=== PATIENT | female | born 1965 | race Caucasian/White ===

== ENCOUNTER 2018-03-08 08:58 | Day surgery (SDC) | payer SELFPAY ==
[2018-03-08] MEDS ORDERED: GENTAMICIN SO4 80 MG/2 ML VIAL ONE (09:47)
[2018-03-08] MEDS ORDERED: ceFAZolin SODIUM 1 GM VIAL ONE ×2 (09:47→10:49)
[2018-03-08] MEDS ORDERED: LIDOCAINE 1%/EPI 1:100000 (20 ML MULTI DOSE VIAL) ONE ×2 (09:47→10:56)
[2018-03-08] MEDS ORDERED: EPINEPHrine 1:1,000 1 MG/1 ML - 30ML VIAL (INJECTION) ONE (09:47)
[2018-03-08] MEDS ORDERED: LIDOCAINE HCL 1% PRESERVATIVE FREE - 30ML VIAL ONE ×2 (09:47→10:56)
[2018-03-08 09:51] VITALS: BMI 24.2
[2018-03-08] MEDS ORDERED: MIDAZOLAM HCL 2 MG/2 ML SINGLE DOSE VIAL ONE (10:30)
[2018-03-08] MEDS ORDERED: DEXAMETHASONE SOD PHOSPHATE 4 MG/1 ML VIAL ONE (10:49)
[2018-03-08] MEDS ORDERED: ONDANSETRON 4 MG/2 ML VIAL ONE ×2 (10:49→14:32)
[2018-03-08] MEDS ORDERED: ePHEDrine SULFATE 50 MG/1 ML AMPULE ONE (11:00)
--- NOTE | 2018-03-08 13:44 | OP ---
Operative Note - Note: Operative Date: 03/08/18 Pre-Operative Diagnosis: cosmetic deformity of breasts. Lipodystrophy of abdomen,back and flanks Operation: Bilateral Mastopexy ,explantation and exchange of textured silicone implants. Suction of abdomen,flanks and back Implants: Sientra 160 low profile bilateral Surgeon: Cisco Carmona Anesthesia: General Specimens Removed: implants Estimated Blood Loss (mls): 40
[2018-03-08] MEDS ORDERED: ONDANSETRON 4 MG/2 ML VIAL IVPUSH PRN (13:47)
[2018-03-08] MEDS ORDERED: oxyCODONE HCL 5 MG TABLET PO PRN ×2 (13:47)
[2018-03-08] MEDS ORDERED: PROMETHAZINE HCL 25 MG/1 ML VIAL IVPUSH PRN (13:47)
[2018-03-08] MEDS ORDERED: ONDANSETRON 4 MG/2 ML VIAL IVPUSH ONE (14:30)
[2018-03-08 16:04] VITALS: TEMP 97.8
[2018-03-08 16:53] VITALS: PULSE 70
[2018-03-08 16:54] VITALS: BP 122/74
--- NOTE | 2018-03-09 11:45 | OP ---
DATE OF OPERATION: 03/08/2018 SURGEON: Kevon Carmona MD PREOPERATIVE DIAGNOSES: 1. Cosmetic deformity of bilateral breasts, status post augmentation mastopexy. 2. Lipodystrophy of abdomen, flanks, and back. POSTOPERATIVE DIAGNOSES: 1. Cosmetic deformity of bilateral breasts, status post augmentation mastopexy. 2. Lipodystrophy of abdomen, flanks, and back. OPERATIVE PROCEDURES: 1. Bilateral implant exchange and capsulotomy. 2. Replacement of bilateral breast implants. 3. Bilateral Alexis-pattern mastopexy. 4. Suction-assisted lipectomy of abdomen, flanks, and back. OPERATIVE INDICATION: Patient is a 52-year-old female who has undergone multiple, previous cosmetic procedures, including breast augmentation and mastopexy, and now finds that her breast volume over last few years has increased in size with ptosis and the nipple-areolar complex in a downward position. The patient feels and discussed the overall size of her breasts to be large for her body size and desired reduction mastopexy and replacement of her implants. She also complained of lipodystrophy of the abdomen, flanks, and back, after previous abdominoplasty and multiple procedures, prior to this procedure. The risks and benefits, surgical versus nonsurgical alternatives, as well as material complications were discussed with the patient on multiple occasions preoperatively. She agreed to the planned procedure. The patient was marked in the standing position preoperatively today with the knowledge of the procedure, the markings, and the overall discussion of the procedure. She agreed to the procedure. All questions were asked and answered. OPERATIVE PROCEDURE IN DETAIL: Patient was taken to the operating room, and after induction of general anesthesia in supine position, both arms were extended and padded. Venodyne boots were placed and then the usual prepping and draping with ChloraPrep over the entire extent of the abdomen, flanks, back, and chest was carried out. At this point, after timeout and anesthesia induction, prepping and draping, attention was turned to the markings which were made on the breasts. The Alexis pattern which had been marked in the standing position was injected with 1% local lidocaine anesthesia with 1:100,000 epinephrine. The prior circumvertical mastopexy was seen. The nipple-areolar complexes which were asymmetric were marked with a number-42 nipple-areolar cutter and the abdominal wall, abdomen, flanks, and back were infiltrated with a dilute tumescent solution for liposuction. Approximately 1600 mL was infiltrated into this area and allowed to create anesthesia while the breasts were being done. At this point, a circumareolar incision was made around the number-42 nipple-areolar cutter on the right breast and then the skin-pattern reduction was de-epithelialized in the usual fashion. No breast volume was removed, but in the lower portion of the de-epithelialized area, an incision measuring 6 cm was made near the inframammary fold. Dissection was then carried down through the subcutaneous tissue to the underlying capsule of the breast implant and the implant was then removed. This was a Dwight 325-cc textured-silicone device. This was sent for pathologic diagnosis. The capsule was then examined and no lesions were seen within the capsule itself and no fluid was seen within the pocket. The pocket was then shrunken by using the capsulorrhaphy-coagulation technique, in multiple locations throughout the pocket, in order to accept a new, smaller implant. At this point, after copious irrigation with triple antibiotic solution, a Sientra smooth, round, low-profile, style 106, 160-cc implant was placed into the pocket. This showed good shape and contour and then was closed in a vertical fashion, closing the capsule and the subcutaneous tissue of the breast over the device to protect it and prevent bottoming-out. Multiple sutures of 2-0 Vicryl sutures were placed into the pillars of the breast and then an advancement flap was created. The Alexis-pattern reduction was then approximated down to the new position, the nipple-areolar complex brought up to the new position in a higher location, and then multiple sutures with 2-0 Vicryl were used to close the deep tissue of the mastopexy. A second layer of suture with 2-0 Vicryl was carried out and then a subcuticular suture using 2-0 V-Loc was carried out circumferentially and vertically on the limbs and along the inframammary fold. The exact, same procedure was carried out on the opposite, left breast, also closing with the exact, same materials, and good symmetry was seen in the sitting position. The patient was then placed down in the supine position. The patient was turned into a lateral position to use the Micro-Aire liposuction device and then a suction-assisted lipectomy was carried out over the entire lateral back, up to the bra and back area, down to the lateral flank area to the hip region, and over the entire abdomen. Approximately 1600 mL of fatty material was removed from all areas symmetrically. Good shape and contour was seen, including the pubic mons area which was suctioned at the patient's request. Good shape and contour was seen of both abdomen and breasts, at this point. Good viability of the nipple-areolar complex was visualized and then the patient was dressed sterilely with Dermabond, Steri-Strips, and a compressive dressing over both areas. She was awakened, extubated, and transferred to the recovery room in a Surgi-Bra and a binder. She tolerated procedure well. KEVON CARMONA M.D. /[id number]
--- NOTE | 2018-03-12 17:06 | PATH ---
Surgical Pathology Report Patient Name: MAURA CASPER Med. Rec. #: [id number] /Age/Gender: 1965 (Age: 52) / F Account: [id number] Location: [facility] AMBUL[facility]ORY Taken: 03/08/2018 Received: 03/08/2018 Reported: 03/12/2018 Physicians: Cisco Carmona Specimen(s) Received A: EXPLANTED RIGHT BREAST IMPLANT B: EXPLANTED LEFT BREAST IMPLANT Clinical History Cosmetic Final Diagnosis A. EXPLANTED RIGHT BREAST IMPLANT, REMOVAL: CONSISTENT WITH BREAST IMPLANT. GROSS EXAMINATION ONLY. B. EXPLANTED LEFT BREAST IMPLANT, REMOVAL: CONSISTENT WITH BREAST IMPLANT. GROSS EXAMINATION ONLY. Electronically Signed Flory Broussard M.D. Gross Description A. Received fresh labeled "explanted right breast implant," is a 12.5 cm in diameter x 3.0 cm in depth clear, rubbery, intact breast implant. No soft tissue is present. No sections are submitted, gross only. B. Received fresh labeled "explanted left breast implant," is a 12.5 cm in diameter x 3.0 cm in depth clear, rubbery, intact breast implant. No soft tissue is present. No sections are submitted, gross only. /03/11/2018 saudi03/11/2018
== END 2018-03-08 17:21 | disposition home or self-care (01) ==
LOC: FASU 08:58
PROVIDERS: ATTEND Plastic Surgery
PROC: 0HPU0JZ Removal of Synthetic Substitute from Left Breast, Open Approach (ICD-10-PCS; 2018-03-08)
PROC: 0HPT0JZ Removal of Synthetic Substitute from Right Breast, Open Approach (ICD-10-PCS; 2018-03-08)
PROC: 0HUU0JZ Supplement Left Breast with Synthetic Substitute, Open Approach (ICD-10-PCS; 2018-03-08)
PROC: 0HUT0JZ Supplement Right Breast with Synthetic Substitute, Open Approach (ICD-10-PCS; 2018-03-08)
PROC: 0J083ZZ Alteration of Abdomen Subcutaneous Tissue and Fascia, Percutaneous Approach (ICD-10-PCS; 2018-03-08)
PROC: 0J073ZZ Alteration of Back Subcutaneous Tissue and Fascia, Percutaneous Approach (ICD-10-PCS; 2018-03-08)
PROC: 0HNV0ZZ Release Bilateral Breast, Open Approach (ICD-10-PCS; principal; 2018-03-08 11:05)
PROC: 0HRV0JZ Replacement of Bilateral Breast with Synthetic Substitute, Open Approach (ICD-10-PCS; 2018-03-08 11:05)
DX: Z41.1 Encounter for cosmetic surgery (principal); E88.1 Lipodystrophy, not elsewhere classified
CPT/HCPCS: 84703; 88300-TC; 94760

== ENCOUNTER 2019-09-16 10:46 | Emergency (ER) | payer OTHER ==
[2019-09-16 10:51] VITALS: BMI 24.2
[2019-09-16] MEDS ORDERED: LACTATED RINGERS SOLUTION 1000 ML INFUS.BAG IV ONE (11:04)
[2019-09-16] MEDS ORDERED: ACETAMINOPHEN 1000 MG/100 ML VIAL (NON FORMULARY) IVPB ONE (11:17)
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
[2019-09-16] MEDS ORDERED: ACETAMINOPHEN INJECTION 100 ML IVPB ONE (11:35)
[2019-09-16 12:04] LABS: HEMATOCRIT 39.2 % (32.4-45.2); HEMOGLOBIN 13.1 GM/dL (10.7-15.3); MCH 30.2 pg (25.7-33.7); MCHC 33.3 g/dl (32.0-36.0); MEAN CELL VOLUME 90.6 fl (80-96); MEAN PLT VOLUME 8.3 fl (7.5-11.1); PLATELET COUNT 209 K/MM3 (134-434); RBC 4.33 M/mm3 (3.60-5.2); RDW 13.2 % (11.6-15.6); WHITE BLOOD COUNT 4.2 K/mm3 (4.0-10.0)
[2019-09-16 12:12] LABS: INR 0.88 (0.83-1.09); PROTHROMBIN TIME (PATIENT) 10.4 SEC (9.7-13.0)
[2019-09-16 12:37] LABS: BILIRUBIN,TOTAL 0.4 mg/dL (0.2-1); BLOOD UREA NITROGEN 16.1 mg/dL (7-18); CALCIUM 9.2 mg/dL (8.5-10.1); CREATININE 0.8 mg/dL (0.55-1.3); POTASSIUM 4.3 mmol/L (3.5-5.1); TOT PROT 7.2 g/dl (6.4-8.2)
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
[2019-09-16 15:43] VITALS: BP 150/100; PULSE 88; TEMP 98.4
--- NOTE | 2019-09-19 11:18 | EKG ---
Test Reason : Blood Pressure : / mmHG Vent. Rate : 087 BPM Atrial Rate : 087 BPM P-R Int : 140 ms QRS Dur : 086 ms QT Int : 348 ms P-R-T Axes : 029 -02 033 degrees QTc Int : 418 ms NORMAL SINUS RHYTHM NO PREVIOUS ECGS AVAILABLE Confirmed by ALESHIA OJEDA MD ([id number]) on 09/19/2019 11:18:01 AM Referred By: Confirmed By:ALESHIA OJEDA MD
== END 2019-09-16 15:44 | disposition home or self-care (01) ==
LOC: JER 10:46
PROC: 3E033GC Introduction of Other Therapeutic Substance into Peripheral Vein, Percutaneous Approach (ICD-10-PCS; principal; 2019-09-16)
DX: R55 Syncope and collapse (principal); T76.11XA Adult physical abuse, suspected, initial encounter; Y04.8XXA Assault by other bodily force, initial encounter
CPT/HCPCS: 36415; 70450-TC; 70486-TC; 71045-TC-FY; 72125-TC; 73090-TC-LT-FY; 73110-TC-LT-FY; 73130-TC-LT-FY; 73523-TC-FY; 80053; 85027; 85610; 86850; 86900; 86901; 93005; 93010; 96374; 99285-25; J0131

== ENCOUNTER 2019-09-16 17:41 | Emergency (ER) | payer OTHER ==
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
[2019-09-16 18:04] VITALS: BP 145/81; PULSE 82; TEMP 98.1; BMI 26.6
[2019-09-16] MEDS ORDERED: ACETAMINOPHEN 325 MG TABLET (FP) PO ONE (18:05)
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
== END 2019-09-16 19:07 | disposition home or self-care (01) ==
LOC: JER 17:41
DX: R51 Headache (principal)
CPT/HCPCS: 99283-25

== ENCOUNTER 2021-12-25 15:19 | Emergency (ER) | payer OTHER ==
[2021-12-25 15:43] VITALS: BP 120/80; PULSE 78; RESP 19; TEMP 98; BMI 29.0
[2021-12-25] MEDS ORDERED: BACITRACIN 15 GM TUBE TOPICAL OINTMENT ONE (16:17)
== END 2021-12-25 17:19 | disposition home or self-care (01) ==
LOC: JERFT 15:19 → JER 15:19 → JERFT 17:19
DX: S60.444A External constriction of right ring finger, initial encounter (principal); W49.04XA Ring or other jewelry causing external constriction, initial encounter; Y92.9 Unspecified place or not applicable
CPT/HCPCS: 99283-25